=== PATIENT | male | born 1950 | race Two or more races ===

== ENCOUNTER 2018-06-24 23:49 | Emergency (ER) | payer OTHER ==
[~2018-06-24] VITALS: Ht 180.3 cm; Wt 110.2 kg
[2018-06-25] MEDS ORDERED: DIOVAN40 MG (00:54)
[2018-06-25] MEDS ORDERED: ZYNCOF 20-400120 ML PO (04:35)
[2018-06-25] MEDS ORDERED: XOPENEX0.63 MG/3 IH (04:36)
== END 2018-06-25 04:37 | disposition home or self-care (01) ==
LOC: ER 23:49
DX: J40 Bronchitis, not specified as acute or chronic (principal); J11.1 Influenza due to unidentified influenza virus with other respiratory manifestations

== ENCOUNTER 2020-12-23 08:00 | Outpatient (CLI) | payer OTHER ==
[~2020-12-23 08:00] MED LIST: DIOVAN40 MG; XOPENEX0.63 MG/3 IH; ZYNCOF 20-400120 ML PO
== END 2020-12-23 08:30 | disposition home or self-care (01) ==
LOC: PPH VACUNA 08:00
PROVIDERS: ATTEND Emergency Medicine Pediatric Emergency Medicine
DX: Z23 Encounter for immunization (principal)

== ENCOUNTER 2021-08-24 10:00 | Outpatient (CLI) | payer OTHER | END 2021-08-24 10:10 | disposition home or self-care (01) | LOC: PPH VACUNA 10:00 | PROVIDERS: ATTEND Emergency Medicine Pediatric Emergency Medicine | DX: Z23 Encounter for immunization (principal) ==